=== PATIENT | female | born 1990 | race Caucasian/White ===

== ENCOUNTER → 2018-03-24 | Outpatient (CLI) | payer OTHER ==
--- NOTE | 2018-03-24 09:15 | RAD ---
EXAM: Pelvic sonogram. HISTORY: Left lower quadrant pain. TECHNIQUE: Transabdominal and transvaginal sonographic imaging of the pelvis was performed. COMPARISON: None. FINDINGS: The uterus is anteverted and measures 7.4 x 5.3 x 2.7 cm. The endometrial stripe measures 2.4 mm in thickness. The ovaries are normal in size. There is normal blood flow within both ovaries. There is a left ovarian cyst measuring 3.4 cm. There are multiple ovarian follicles. There is an IUD within the endometrial cavity. There is no pelvic free fluid. IMPRESSION: 1. IUD within the endometrial cavity. 2. 3.4 cm left ovarian cyst. Electronically signed by: Emma Jernigan MD (03/24/2018 9:12 AM) [place] [id number]
== END | disposition home or self-care (01) ==
LOC: US 07:42
PROVIDERS: ATTEND Physician Assistant Medical
DX: N83.292 Other ovarian cyst, left side (principal)
CPT/HCPCS: 76830; 76856